=== PATIENT | female | born 1955 | race Hispanic/Latino ===

== ENCOUNTER → 2019-05-09 | Day surgery (SDC) | payer OTHER ==
[~2019-05-09] MED LIST: ALENDRONATE SOD70 MG PO; EPHEDRINE SULFATE INJ 50 MG/ML VIAL ONE; FENTANYL CITRATE/PF 100MCG/2 ML INJ ONE; HYOSCYAMINE 0.125 MG TAB ONE; LISINOPRIL-HCT1 EAC1 PO; MAGNESIUM PO; MIDAZOLAM HCL 2 MG/2 ML VIAL ONE; PROPOFOL IV EMULSION 10 MG/ML 50 ML VIAL ONE; SUPER B WITH V1 EACH PO
--- OUTSIDE RECORDS SUMMARY | 2019-05-09 06:28 | XMS REPORT ---
Author Author [facility] Address Unknown Phone Unavailable Care Team Providers Care Ward Attendant Name Role Phone Unavailable Unavailable Payers Payer Name Policy Type Policy Number Effective Date Expiration Date Problems This patient has no known problems. Allergies, Adverse Reactions, Alerts Allergy Name Allergy Type Status Severity Reaction(s) Onset Date Inactive Date Treating Clinician Comments oxycodone DA Active MO 2018-12-20 00:00:00 No Known Allergies DA Active U 2018-12-19 00:00:00 No Known Allergies DA Active U 2018-12-13 00:00:00 Medications This patient has no known medications. Results Test Description Test Time Test Comments Text Results Atomic Results Result Comments URINALYSIS COMPLETE 2018-12-27 18:27:00 UA COLOR (test code=COLU) STRAW YEL/STRAW UA APPEARANCE (test code=APPU) CLEAR CLEAR UA GLUCOSE DIPSTICK (test code=DGLUU) NEGATIVE NEGATIVE UA BILIRUBIN DIPSTICK (test code=BILU) NEGATIVE NEGATIVE UA KETONE DIPSTICK (test code=KETU) NEGATIVE NEGATIVE UA SPECIFIC GRAVITY (test code=SGU) 1.004 1.005-1.030 UA BLOOD DIPSTICK (test code=MEI) 2+ NEGATIVE UA PH DIPSTICK (test code=CHARLENE) 7.0 5.0-7.0 UA PROTEIN DIPSTICK (test code=PROU) NEGATIVE NEGATIVE UA UROBILINIOGEN DIPSTICK (test code=URO) 0.2 mg/dL 0.2-1.0 UA NITRITE DIPSTICK (test code=JAIME) NEGATIVE NEGATIVE UA LEUKOCYTE ESTERASE DIPSTICK (test code=LEUU) NEGATIVE NEGATIVE UA RBC (test code=RBCU) 0-3 RBC/HPF 0-3 UA WBC NO REFLEX (test code=WBCUCL) 0-3 WBC/HPF 0-3 UA BACTERIA (test code=BACU) NONE SEEN /HPF NONE SEEN UA SQUAMOUS CELLS (test code=SQU) 0-5 /HPF NONE SEEN BASIC METABOLIC [id number] 12:25:00* Test Item Value Reference Range Comments SODIUM (test code=NA) 137 mEq/L 134-147 POTASSIUM (test code=K) 4.0 mEq/L 3.4-5.0 CHLORIDE (test code=CL) 101 mEq/L 100-108 CARBON DIOXIDE (test code=CO2) 32 mEq/L 21-33 ANION GAP (test code=GAP) 8 0-20 GLUCOSE (test code=GLU) 115 mg/dL 70-110 BLOOD UREA NITROGEN (test code=BUN) 11 mg/dL 7-18 GLOMERULAR FILTRATION RATE (test code=GFR) 63.7 80-90 Units of measure=ml/min/1.73 m2 CREATININE (test code=CREAT) 0.9 mg/dL 0.6-1.3 CALCIUM (test code=CA) 9.2 mg/dL 8.0-10.5 BASIC METABOLIC [id number] 12:23:00* Test Item Value Reference Range Comments SODIUM (test code=NA) 137 mEq/L 134-147 POTASSIUM (test code=K) 4.0 mEq/L 3.4-5.0 CHLORIDE (test code=CL) 101 mEq/L 100-108 CARBON DIOXIDE (test code=CO2) 32 mEq/L 21-33 ANION GAP (test code=GAP) 8 0-20 GLUCOSE (test code=GLU) 115 mg/dL 70-110 BLOOD UREA NITROGEN (test code=BUN) 11 mg/dL 7-18 GLOMERULAR FILTRATION RATE (test code=GFR) 80-90 CREATININE (test code=CREAT) mg/dL 0.6-1.3 CALCIUM (test code=CA) 9.2 mg/dL 8.0-10.5 URINALYSIS [id number] 02:43:00* Test Item Value Reference Range Comments UA COLOR (test code=COLU) YELLOW YEL/STRAW UA APPEARANCE (test code=APPU) CLEAR CLEAR UA GLUCOSE DIPSTICK (test code=DGLUU) NEGATIVE NEGATIVE UA BILIRUBIN DIPSTICK (test code=BILU) NEGATIVE NEGATIVE UA KETONE DIPSTICK (test code=KETU) NEGATIVE NEGATIVE UA SPECIFIC GRAVITY (test code=SGU) 1.006 1.005-1.030 UA BLOOD DIPSTICK (test code=MEI) 1+ NEGATIVE UA PH DIPSTICK (test code=CHARLENE) 6.0 5.0-7.0 UA PROTEIN DIPSTICK (test code=PROU) NEGATIVE NEGATIVE UA UROBILINIOGEN DIPSTICK (test code=URO) 0.2 mg/dL 0.2-1.0 UA NITRITE DIPSTICK (test code=JAIME) NEGATIVE NEGATIVE UA LEUKOCYTE ESTERASE DIPSTICK (test code=LEUU) NEGATIVE NEGATIVE UA RBC (test code=RBCU) 0-3 RBC/HPF 0-3 UA WBC NO REFLEX (test code=WBCUCL) 0-3 WBC/HPF 0-3 UA BACTERIA (test code=BACU) TRACE /HPF NONE SEEN UA SQUAMOUS CELLS (test code=SQU) NONE SEEN /HPF NONE SEEN UA MUCUS (test code=MUCU) TRACE /LPF NONE SEEN COMMENTS: Clean Catch- CT ABD PELVIS [id number] 02:31:00 Name: ANDRIA CROSS [facility] : 1955 Age/S: 63 / F [address] [place] [address] Unit #: [id number] Loc: [place] [address] Phys: Tom Tan CAMERA MACHINIST Acct: [id number] Di s Date: Status: DEP ER PHONE #: [phone] Exam Date: 12/20/2018 013 FAX #: Reason: ABDOMINAL PAIN -RECENT ABDOMINAL SURGERY-BLADDE EXAMS: CPT CODE: [id number] CT ABD PELVIS W/CONT 68211 EXAM: CT, CT ABDOMEN PELV IS W CONTRAST: 12/20/2018, 0134 hours HISTORY: ABDOMINAL PAIN -RECE NT ABDOMINAL SURGERY-BLADDER SUSP COMPARISON: None available. TECHNIQUE: Helical imaging was performed from diaphragm through the symphysis with coronal and sagittal reconstructions. CT imaging was p erformed with exposure control parameters to reduce radiation dose. All CT scans at this location are performed using dose optimization techniques as appropriate to perform exam including the following: * Automated exposure control * Adjustment of the mA and /or kV according to patient size (this includes techniques or standardized protocols for targeted exams where dose is matched to indication/reason for exam; extremities or head) * Use of iterative reconstruction technique IV CONTRAST: 100 cc Isovue. GI CONTRAST: YES CT Radiation Dose: GLQ=853.65 mGy-cm FINDINGS: LOWER CHEST: The visualized lung bases are clear. LIVER: Unremarkable. GALLBLADDER: Unremarkable. I NTRAHEPATIC BILE DUCT AND EXTRAHEPATIC BILE DUCT: Unremarkable. PANCREAS: Unremarkable. SPLEEN: Unremarkable. ADRENALS: Unremarkable. KI DNEYS AND URETERS: There is mild bilateral hydrocele ureteral nephrosis. No obstructing stone identified bilaterally.. STOMACH: Unremarkabl e. BOWEL: The small bowel loops in the abdomen and pelvis appear unr emarkable. Moderately large fecal load in the colon. APPENDIX: Normal. PERITONEUM AND RETROPERITONEUM: No ascites or free air. There is no aortic aneurysm or dissection. Post anterior abdominal wall hernia repair changes. LYMPH NODES: Unremarkable. PAGE 1 Signed Report (CONTINUED) Name: SHANIQUA CROSS [facility] : 1955 Age /S: 63 / F [address] [place] [address] Unit #: [id number] Loc: [place] [address] Phys: Macarena Tan CAMERA MACHINIST Acct: [id number] Dis Date: Status: DEP ER PHONE #: [phone] Exam Date: 12/20/2018 0137 FAX #: [phone] Reason: ABDOMINAL PAIN -RECENT ABDOMINAL SURGERY-BLADDE EXAMS: CPT CODE: [id number] CT ABD PELVIS W/CONT 91594 <Continued> PELVIS: No pelvic mass or adenopathy. Uterus and ovaries are not visualized. A soft tissue density with small calcification in the left upper pelvis indeterminate. Left ovary in differential. BLADDER: Moderately distended with small intraluminal air, probably due to recent instrumentation.. OSSEOUS STRUCTURES: Mild right scoliosis of the thoracolumbar spine. Mild degenerative changes in thoracolumbar spine. SOFT TISSUES: Unremarkable. IMPRESSION: 1. There is mild bilateral hydroureteronephrosis. No obstructing stones identified in the ureters. Please correlate with labs. 2. Moderately distended bladder with small intraluminal air which may be due to recent instrumentation. 3. Moderately large fecal load in the colon. 4. A soft tissue density with small calcification in the left upper pelvis indeterminate. Left ovary or adenopathy in differential. SL: JSYED-H at 0231 Reported and signed by: Ken Kimbrough M.D. CC: Jimmy Mehta MD; Macarena Tan Technologist:Jason Chappell, RT(R) CTDI: DLP: Trnscb Date/Time: 12/20/2018 (023) [email or web address] Orig Print D/T: S: 12/20/2018 (0234) PAGE 2 Signed Report - CT ABD PELVIS [id number] 02:31:00 Name: ANDRIA CROSS [facility] : 1955 Age/S: 63 / F [address] [place], [place] [address]vd Unit #: [id number] Loc: [place] [address] Phys: Macarena Tan Acct: [id number] Dis Date: Status: REG ER PHONE #: [phone] Exam Date: 12/20/2018136 FAX #: [phone] Reason: ABDOMINAL PAIN -RECENT ABDOMINAL SURGERY-BLADDE EXAMS: CPT CODE: [id number] CT ABD PELVIS W/CONT 14274 EXAM: CT, CT ABDOMEN PELVIS W CONTRAST: 12/20/2018, 0134 hours HISTORY: ABDOMINAL PAIN -RECENT ABDOMINAL SURGERY-BLADDER SUSP COMPARISON: None available. TECHNIQUE: Helical imaging was performed from diaphragm through the symphysis with coronal and sagittal reconstructions. CT imaging was performed with exposure control parameters to reduce radiation dose. All CT scans at this location are performed using dose optimization techniques as appropriate to perform exam including the following: * Automated exposure control * Adjustment of the mA and /or kV according to patient size (this includes techniques or standardized protocols for targeted exams where dose is matched to indication/reason for exam; extremities or head) * Use of iterative reconstruction technique IV CONTRAST: 100 cc Isovue. GI CONTRAST: YES CT Radiation Dose: LCC=448.65 mGy-cm FINDINGS: LOWER CHEST: The visualized lung bases are clear. LIVER: Unremarkable. GALLBLADDER: Unremarkable. INTRAHEPATIC BILE DUCT AND EXTRAHEPATIC BILE DUCT: Unremarkable. PANCREAS: Unremarkable. SPLEEN: Unremarkable. ADRENALS: Unremarkable. KI DNEYS AND URETERS: There is mild bilateral hydrocele ureteral nephrosis. No obstructing stone identified bilaterally.. STOMACH: Unremarkabl e. BOWEL: The small bowel loops in the abdomen and pelvis appear unr emarkable. Moderately large fecal load in the colon. APPENDIX: Normal. PERITONEUM AND RETROPERITONEUM: No ascites or free air. There is no aortic aneurysm or dissection. Post anterior abdominal wall hernia repair changes. LYMPH NODES: Unremarkable. PAGE 1 Signed Report (CONTINUED) Name: SHANIQUA CROSS [facility] : 1955 Age /S: 63 / F [address] [place] [address] Blvd Unit #: [id number] Loc: [place] [address] Phys: Macarena Tan CAMERA MACHINIST Acct: [id number] Dis Date: Status: REG ER PHONE #: [phone] Exam Date: 12/20/2018 0137 FAX #: [phone] Reason: ABDOMINAL PAIN -RECENT ABDOMINAL SURGERY-BLADDE EXAMS: CPT CODE: [id number] CT ABD PELVIS W/CONT 17774 <Continued> PELVIS: No pelvic mass or adenopathy. Uterus and ovaries are not visualized. A soft tissue density with small calcification in the left upper pelvis indeterminate. Left ovary in differential. BLADDER: Moderately distended with small intraluminal air, probably due to recent instrumentation.. OSSEOUS STRUCTURES: Mild right scoliosis of the thoracolumbar spine. Mild degenerative changes in thoracolumbar spine. SOFT TISSUES: Unremarkable. IMPRESSION: 1. There is mild bilateral hydroureteronephrosis. No obstructing stones identified in the ureters. Please correlate with labs. 2. Moderately distended bladder with small intraluminal air which may be due to recent instrumentation. 3. Moderately large fecal load in the colon. 4. A soft tissue density with small calcification in the left upper pelvis indeterminate. Left ovary or adenopathy in differential. SL: MORIAH at 0231 Reported and signed by: Ken Kimbrough M.D. CC: Jimmy Mehta MD; Macarena DAVID Sheffield Technologist:RT Bennie(R) CTDI: DLP: Trnscb Date/Time: 12/20/2018 (023) [email or web address] Orig Print D/T: S: 12/20/2018 (0231) PAGE 2 Signed Report LACTIC ACID 2018-12-20 00:56:00* Test Item Value Reference Range Comments LACTIC ACID (test code=LACT) 1.4 mmol/L 0.4-1.9 COMPREHENSIVE METABOLIC [id number] 00:54:00* Test Item Value Reference Range Comments SODIUM (test code=NA) 135 mEq/L 134-147 POTASSIUM (test code=K) 4.3 mEq/L 3.4-5.0 CHLORIDE (test code=CL) 101 mEq/L 100-108 CARBON DIOXIDE (test code=CO2) 30 mEq/L 21-33 ANION GAP (test code=GAP) 8 0-20 GLUCOSE (test code=GLU) 124 mg/dL 70-110 BLOOD UREA NITROGEN (test code=BUN) 13 mg/dL 7-18 GLOMERULAR FILTRATION RATE (test code=GFR) 56.4 80-90 Units of measure=ml/min/1.73 m2 CREATININE (test code=CREAT) 1.0 mg/dL 0.6-1.3 TOTAL PROTEIN (test code=PROT) 7.4 g/dL 6.4-8.2 ALBUMIN (test code=ALB) 3.60 g/dL 3.4-5.0 CALCIUM (test code=CA) 9.1 mg/dL 8.0-10.5 BILIRUBIN TOTAL (test code=BILT) 0.6 MG/DL <1.5 SGOT/AST (test code=AST) 35 IUnit/L 15-37 SGPT/ALT (test code=ALT) 24 IUnit/L 15-65 ALKALINE PHOSPHATASE TOTAL (test code=ALKP) 68 IUnit/L 20-125 HEPATIC FUNCTION [id number] 00:54:00* Test Item Value Reference Range Comments BILIRUBIN DIRECT (test code=BILD) 0.20 MG/DL 0.0-0.30 BILIRUBIN INDIRECT (test code=BILIND) 0.40 MG/DL [id number] 00:54:00* Test Item Value Reference Range Comments LIPASE (test code=LIP) 108 IUnit/L 73-393 HCG SERUM [id number] 00:54:00* Test Item Value Reference Range Comments HCG SERUM QUAL (test code=HCGQL) SERUM NEGATIVE NEGATIVE [id number] 00:54:00* Test Item Value Reference Range Comments TROPONIN-I (test code=TROPI) < 0.015 ng/mL 0.000-0.045 Negative: <=0.045 Positive: >=0.046 Correlation with serial results, other cardiac markers andclinical findings is necessary to determine the clinicalsignificance of this result. Results using different methodologies should not be comparedto one another as quantitative results may vary by method. PROTHROMBIN [id number] 00:47:00* Test Item Value Reference Range Comments PROTHROMBIN TIME PATIENT (test code=PTP) 10.9 SECONDS 9.3-12.9 INTERNATIONAL NORMAL RATIO (test code=INR) 1.0 0.8-1.2 TARGET INR BY INDICATION Indication INR1. Prophylaxis of venous thrombosis 2.0 - 3.0 (orthopedic surgery), Prophylaxis of venous thrombosis (other than high-risk surgery), Treatment of Deep Vein Thrombosis/Pulmonary Embolism, Prevention of systemic embolism - Tissue heart valves, Acute Myocardial Infarction (to prevent systemic embolism), Valvular heart disease, Atrial Fibrillation, Bileaflet mechanical valve in aortic position.2. Mechanical prosthetic valves (high risk), 2.5 - 3.5 Presence of Lupus Anticoagulant or Antiphospholipid Antibodies, Prevention of systemic embolism - Acute Myocardial Infarction (to prevent recurrent infarct). THROMBOPLASTIN TIME [id number] 00:47:00* Test Item Value Reference Range Comments THROMBOPLASTIN TIME PARTIAL (test code=PTT) 28.2 Seconds 25.0-39.5 Therapeutic Range: 50.4 - 88.3 Seconds Effective 07/06/2018 COMPREHENSIVE METABOLIC [id number] 00:47:00* Test Item Value Reference Range Comments SODIUM (test code=NA) mEq/L 134-147 POTASSIUM (test code=K) mEq/L 3.4-5.0 CHLORIDE (test code=CL) mEq/L 100-108 CARBON DIOXIDE (test code=CO2) mEq/L 21-33 ANION GAP (test code=GAP) 0-20 GLUCOSE (test code=GLU) mg/dL 70-110 BLOOD UREA NITROGEN (test code=BUN) mg/dL 7-18 GLOMERULAR FILTRATION RATE (test code=GFR) 80-90 CREATININE (test code=CREAT) mg/dL 0.6-1.3 TOTAL PROTEIN (test code=PROT) g/dL 6.4-8.2 ALBUMIN (test code=ALB) g/dL 3.4-5.0 CALCIUM (test code=CA) mg/dL 8.0-10.5 BILIRUBIN TOTAL (test code=BILT) MG/DL <1.5 SGOT/AST (test code=AST) IUnit/L 15-37 SGPT/ALT (test code=ALT) IUnit/L 15-65 ALKALINE PHOSPHATASE TOTAL (test code=ALKP) IUnit/L 20-125 HEPATIC FUNCTION [id number] 00:47:00* Test Item Value Reference Range Comments BILIRUBIN DIRECT (test code=BILD) MG/DL 0.0-0.30 [id number] 00:47:00* Test Item Value Reference Range Comments LIPASE (test code=LIP) IUnit/L 73-393 HCG SERUM [id number] 00:47:00* Test Item Value Reference Range Comments HCG SERUM QUAL (test code=HCGQL) SERUM NEGATIVE NEGATIVE [id number] 00:47:00* Test Item Value Reference Range Comments TROPONIN-I (test code=TROPI) ng/mL 0.000-0.045 CBC W/AUTO [id number] 00:33:00* Test Item Value Reference Range Comments WHITE BLOOD CELL (test code=WBC) 11.82 x10 3/uL 4.5-11.0 RED BLOOD CELL (test code=RBC) 3.59 x10 6/uL 3.54-5.02 HEMOGLOBIN (test code=HGB) 11.7 g/dL 11.0-15.0 HEMATOCRIT (test code=HCT) 34.9 % 33.0-45.0 MEAN CELL VOLUME (test code=MCV) 97.2 fL 81.0-99.0 MEAN CELL HGB (test code=MCH) 32.6 pg 27.0-33.0 MEAN CELL HGB CONCETRATION (test code=MCHC) 33.5 g/dL 33.0-37.0 RED CELL DISTRIBUTION WIDTH CV (test code=RDW) 11.2 % 11.5-14.5 RED CELL DISTRIBUTION WIDTH SD (test code=RDW-SD) 40.0 fL 37.0-54.0 PLATELET COUNT (test code=PLT) 231 x10 3/uL 150-400 MEAN PLATELET VOLUME (test code=MPV) 10.0 fL 7.0-9.0 NEUTROPHIL % (test code=NT%) 72.6 % 56.0-77.0 IMMATURE GRANULOCYTE % (test code=IG%) 1.0 % 0.0-2.0 LYMPHOCYTE % (test code=LY%) 19.0 % 14.0-32.0 MONOCYTE % (test code=MO%) 6.0 % 4.8-9.0 EOSINOPHIL % (test code=EO%) 1.1 % 0.3-3.7 BASOPHIL % (test code=BA%) 0.3 % 0.0-2.0 NUCLEATED RBC % (test code=NRBC%) 0.0 % 0-0 NEUTROPHIL # (test code=NT#) 8.57 x10 3/uL 2.0-7.6 IMMATURE GRANULOCYTE # (test code=IG#) 0.12 x10 3/uL 0.00-0.03 LYMPHOCYTE # (test code=LY#) 2.25 x10 3/uL 1.0-3.8 MONOCYTE # (test code=MO#) 0.71 x10 3/uL 0.1-0.8 EOSINOPHIL # (test code=EO#) 0.13 x10 3/uL 0.0-0.2 BASOPHIL # (test code=BA#) 0.04 x10 3/uL 0.0-0.2 NUCLEATED RBC # (test code=NRBC#) 0.00 x10 3/uL 0.0-0.1 MANUAL DIFF REQUIRED (test code=MDIFF) NO SURGICAL [id number] 08:37:00 RUN DATE: 12/18/18 [facility] *LIVE* PAGE 1 RUN TIME: 836 Specimen Inqui ry RUN USER: INTERFACE PATIENT: ANDRIA CROSS ACCT #: [id number] LOC: [facility] U #: [id number] AGE/SX: 63/F ROOM: [facility] RE12/15/18REG DR: Lynette Henderson : [birth year] BED: 1 DIS: 12/17/18 STATUS: DIS Ellen TLOC: SPEC #: [id number] RECD: 12/16/18 STATUS: [place] REQ #: [id number] ORLIN: 12/16/[address]: Lynette Henderson MD ENTERED: 12/18/18 SP TYPE: SURG SPEC OTHR DR: Sebastian Cazares JR, MD, Dhruvil R MDORDERED: GM LEVEL 4 CODES: [id number] - UTERUS, NOS COPIES TO: Yoli Sanders MD [address] [place], [place] [id number] Sebastian Cazares JR, MD [address] [address] Lanie Lacy MD [address] [place], [place] [address] [place] [address] PROCEDURES: LEVEL 4 (Incomplete) TISSUES: 1. UTERUS, NOS - Uterus, cervix, excision FINAL DIAGNOSIS Cervix uteri: Chronic cerv icitis, squamous metaplasia, nabothian cysts. Endometrium: Basal state. Corpus uteri: Leiomyomata, adenomyosis, fibrous serosal adhesions. GROSS AND MICROSCOPIC GROSS EXAMINATION: Received the specimen as designated above and it consists of a uterus that weighs 59 g and measures 7.6 x 4.5 x 3.3 cm. The endometrium measures 0.1 cm, myometrium 1.6 cm with one rivera-wh ite nodule measuring 1.4 cm. Sections are submitted as (A)-(F). MICROSCOPIC EXAMINATION: The ectocervical mucosa has normal maturation. The endocervical mucosa has nabothian cysts, areas of squamous metaplasia and associated chronic inflammation. CONTINUED ON NEXT PAGE RUN D ATE: 12/18/18 [facility] *LIVE* PA GE 2 RUN TIME: 0837 Specimen Inquiry RUN USER: INTERFACE SPEC #: [id number] PATIENT: ANDRIA CROSS #[id number] (Continued) GROSS AND MICROSCOPIC (Shameka nued) The endometrial glands show basal state. Benign endometrial glands and stroma are present in the myometrium. The myometrial nodule(s) are composed of bundles of smooth muscle cells with no significant nuclear atypia or mitotic activity. The serosa shows fibrous adhesions. POST-OP DIAGNOSIS Pelvic organ prolapse, incarcerated ventral hernia PRE-OP DIAGNOSIS Pelvic organ prolapse, incarcerated ventral hernia S igned SIGNATURE ON FILE Ryan Kulkarni MD 12/18/18 0837 E ND OF REPORT BASIC METABOLIC [id number] 07:44:00* Test Item Value Reference Range Comments SODIUM (test code=NA) 135 mEq/L 134-147 POTASSIUM (test code=K) 4.3 mEq/L 3.4-5.0 CHLORIDE (test code=CL) 104 mEq/L 100-108 CARBON DIOXIDE (test code=CO2) 23 mEq/L 21-33 ANION GAP (test code=GAP) 12 0-20 GLUCOSE (test code=GLU) 118 mg/dL 70-110 BLOOD UREA NITROGEN (test code=BUN) 15 mg/dL 7-18 GLOMERULAR FILTRATION RATE (test code=GFR) 56.4 80-90 Units of measure=ml/min/1.73 m2 CREATININE (test code=CREAT) 1.0 mg/dL 0.6-1.3 CALCIUM (test code=CA) 7.9 mg/dL 8.0-10.5 CBC W/AUTO [id number] 07:18:00* Test Item Value Reference Range Comments WHITE BLOOD CELL (test code=WBC) 13.79 x10 3/uL 4.5-11.0 RED BLOOD CELL (test code=RBC) 3.19 x10 6/uL 3.54-5.02 HEMOGLOBIN (test code=HGB) 10.7 g/dL 11.0-15.0 HEMATOCRIT (test code=HCT) 31.3 % 33.0-45.0 MEAN CELL VOLUME (test code=MCV) 98.1 fL 81.0-99.0 MEAN CELL HGB (test code=MCH) 33.5 pg 27.0-33.0 MEAN CELL HGB CONCETRATION (test code=MCHC) 34.2 g/dL 33.0-37.0 RED CELL DISTRIBUTION WIDTH CV (test code=RDW) 11.1 % 11.5-14.5 RED CELL DISTRIBUTION WIDTH SD (test code=RDW-SD) 39.2 fL 37.0-54.0 PLATELET COUNT (test code=PLT) 181 x10 3/uL 150-400 MEAN PLATELET VOLUME (test code=MPV) 10.1 fL 7.0-9.0 NEUTROPHIL % (test code=NT%) 87.6 % 56.0-77.0 IMMATURE GRANULOCYTE % (test code=IG%) 0.4 % 0.0-2.0 LYMPHOCYTE % (test code=LY%) 7.7 % 14.0-32.0 MONOCYTE % (test code=MO%) 4.2 % 4.8-9.0 EOSINOPHIL % (test code=EO%) 0.0 % 0.3-3.7 BASOPHIL % (test code=BA%) 0.1 % 0.0-2.0 NUCLEATED RBC % (test code=NRBC%) 0.0 % 0-0 NEUTROPHIL # (test code=NT#) 12.08 x10 3/uL 2.0-7.6 IMMATURE GRANULOCYTE # (test code=IG#) 0.06 x10 3/uL 0.00-0.03 LYMPHOCYTE # (test code=LY#) 1.06 x10 3/uL 1.0-3.8 MONOCYTE # (test code=MO#) 0.58 x10 3/uL 0.1-0.8 EOSINOPHIL # (test code=EO#) 0.00 x10 3/uL 0.0-0.2 BASOPHIL # (test code=BA#) 0.01 x10 3/uL 0.0-0.2 NUCLEATED RBC # (test code=NRBC#) 0.00 x10 3/uL 0.0-0.1 MANUAL DIFF REQUIRED (test code=MDIFF) NO COMPREHENSIVE METABOLIC [id number] 12:23:00* Test Item Value Reference Range Comments SODIUM (test code=NA) 140 mEq/L 134-147 POTASSIUM (test code=K) 3.8 mEq/L 3.4-5.0 CHLORIDE (test code=CL) 104 mEq/L 100-108 CARBON DIOXIDE (test code=CO2) 30 mEq/L 21-33 ANION GAP (test code=GAP) 10 0-20 GLUCOSE (test code=GLU) 114 mg/dL 70-110 BLOOD UREA NITROGEN (test code=BUN) 16 mg/dL 7-18 GLOMERULAR FILTRATION RATE (test code=GFR) 50.5 80-90 Units of measure=ml/min/1.73 m2 CREATININE (test code=CREAT) 1.1 mg/dL 0.6-1.3 TOTAL PROTEIN (test code=PROT) 8.3 g/dL 6.4-8.2 ALBUMIN (test code=ALB) 4.10 g/dL 3.4-5.0 CALCIUM (test code=CA) 9.7 mg/dL 8.0-10.5 BILIRUBIN TOTAL (test code=BILT) 0.4 MG/DL <1.5 SGOT/AST (test code=AST) 18 IUnit/L 15-37 SGPT/ALT (test code=ALT) 14 IUnit/L 15-65 ALKALINE PHOSPHATASE TOTAL (test code=ALKP) 56 IUnit/L 20-125 COMPREHENSIVE METABOLIC [id number] 12:09:00* Test Item Value Reference Range Comments SODIUM (test code=NA) 140 mEq/L 134-147 POTASSIUM (test code=K) 3.8 mEq/L 3.4-5.0 CHLORIDE (test code=CL) 104 mEq/L 100-108 CARBON DIOXIDE (test code=CO2) 30 mEq/L 21-33 ANION GAP (test code=GAP) 10 0-20 GLUCOSE (test code=GLU) 114 mg/dL 70-110 BLOOD UREA NITROGEN (test code=BUN) 16 mg/dL 7-18 GLOMERULAR FILTRATION RATE (test code=GFR) 80-90 CREATININE (test code=CREAT) mg/dL 0.6-1.3 TOTAL PROTEIN (test code=PROT) g/dL 6.4-8.2 ALBUMIN (test code=ALB) g/dL 3.4-5.0 CALCIUM (test code=CA) 9.7 mg/dL 8.0-10.5 BILIRUBIN TOTAL (test code=BILT) MG/DL <1.5 SGOT/AST (test code=AST) IUnit/L 15-37 SGPT/ALT (test code=ALT) IUnit/L 15-65 ALKALINE PHOSPHATASE TOTAL (test code=ALKP) IUnit/L 20-125 CBC W/AUTO [id number] 11:49:00* Test Item Value Reference Range Comments WHITE BLOOD CELL (test code=WBC) 6.38 x10 3/uL 4.5-11.0 RED BLOOD CELL (test code=RBC) 4.17 x10 6/uL 3.54-5.02 HEMOGLOBIN (test code=HGB) 13.8 g/dL 11.0-15.0 HEMATOCRIT (test code=HCT) 40.4 % 33.0-45.0 MEAN CELL VOLUME (test code=MCV) 96.9 fL 81.0-99.0 MEAN CELL HGB (test code=MCH) 33.1 pg 27.0-33.0 MEAN CELL HGB CONCETRATION (test code=MCHC) 34.2 g/dL 33.0-37.0 RED CELL DISTRIBUTION WIDTH CV (test code=RDW) 11.4 % 11.5-14.5 RED CELL DISTRIBUTION WIDTH SD (test code=RDW-SD) 40.3 fL 37.0-54.0 PLATELET COUNT (test code=PLT) 228 x10 3/uL 150-400 MEAN PLATELET VOLUME (test code=MPV) 10.0 fL 7.0-9.0 NEUTROPHIL % (test code=NT%) 55.7 % 56.0-77.0 IMMATURE GRANULOCYTE % (test code=IG%) 0.6 % 0.0-2.0 LYMPHOCYTE % (test code=LY%) 36.2 % 14.0-32.0 MONOCYTE % (test code=MO%) 6.4 % 4.8-9.0 EOSINOPHIL % (test code=EO%) 0.5 % 0.3-3.7 BASOPHIL % (test code=BA%) 0.6 % 0.0-2.0 NUCLEATED RBC % (test code=NRBC%) 0.0 % 0-0 NEUTROPHIL # (test code=NT#) 3.55 x10 3/uL 2.0-7.6 IMMATURE GRANULOCYTE # (test code=IG#) 0.04 x10 3/uL 0.00-0.03 LYMPHOCYTE # (test code=LY#) 2.31 x10 3/uL 1.0-3.8 MONOCYTE # (test code=MO#) 0.41 x10 3/uL 0.1-0.8 EOSINOPHIL # (test code=EO#) 0.03 x10 3/uL 0.0-0.2 BASOPHIL # (test code=BA#) 0.04 x10 3/uL 0.0-0.2 NUCLEATED RBC # (test code=NRBC#) 0.00 x10 3/uL 0.0-0.1 MANUAL DIFF REQUIRED (test code=MDIFF) NO PROTHROMBIN [id number] 11:41:00* Test Item Value Reference Range Comments PROTHROMBIN TIME PATIENT (test code=PTP) 11.2 SECONDS 9.3-12.9 INTERNATIONAL NORMAL RATIO (test code=INR) 1.0 0.8-1.2 TARGET INR BY INDICATION Indication INR1. Prophylaxis of venous thrombosis 2.0 - 3.0 (orthopedic surgery), Prophylaxis of venous thrombosis (other than high-risk surgery), Treatment of Deep Vein Thrombosis/Pulmonary Embolism, Prevention of systemic embolism - Tissue heart valves, Acute Myocardial Infarction (to prevent systemic embolism), Valvular heart disease, Atrial Fibrillation, Bileaflet mechanical valve in aortic position.2. Mechanical prosthetic valves (high risk), 2.5 - 3.5 Presence of Lupus Anticoagulant or Antiphospholipid Antibodies, Prevention of systemic embolism - Acute Myocardial Infarction (to prevent recurrent infarct). THROMBOPLASTIN TIME [id number] 11:41:00* Test Item Value Reference Range Comments THROMBOPLASTIN TIME PARTIAL (test code=PTT) 32.4 Seconds 25.0-39.5 Therapeutic Range: 50.4 - 88.3 Seconds Effective 07/06/2018 - XR CHEST 2 [id number] 11:19:00 FAX: Yoli Fraser [phone] [place]: St: PRE FAX: Lanie Julian MD [phone] Name: ANDRIA CROSS [facility] : 1955 Age/S: 63/F [address] [place] [address] Unit #: [id number] Loc: [place] [address] Phys: Lanie Lacy MD Acct: [id number] Dis Date: Status: PRE SDC PHONE #: [phone] Exam Date: 12/13/2018 1115 FAX #: [phone] Reason: PRE-OP HYSTERECTOMY, VENTRAL HERNIA EXAMS: CPT CODE: [id number] XR CHEST 2 V 39694 CLINICAL HISTORY: PRE-OP HYSTERECTOMY, VENTRAL HERNIA COMPARISON: NONE PA and lateral films of the chest demonstrate that heart size is normal. Lung edwards are clear. No evidence of pneumonia or congestive failure is seen. Regional skeletal structures demonstrate no acute abnormality. IMPRESSION: No evidence of pneumonia or congestive failure is seen. at 1119 Reported and signed by: Ja Lacy M.D. CC: Yoli Henderson MD; Lanie Lacy MD Technologist: RT Edilberto(R) Trnscrd Date/Time/By: 12/13/2018 (1112) : By: Cesar Orig Print D/T: S: 12/13/2018 (4989) PAGE 1 Signed Report - CT ABD PELVIS W/O [id number] 09:55:00 Name: ANDRIA CROSS : 1955 Age/S: 63 / F [address] [place] [address] Unit #: [id number] Loc: [place] [address] Phys: Lanie Lacy MD Acct: [id number] Dis Date: Status: REG CLI PHONE #: [phone] Exam Date: 11/12/2018906 FAX #: [phone] Reason: K43.9 VENTRAL HERNIA W/O OBSTRUCTION OR GANGREN EXAMS: CPT CODE: [id number] CT ABD PELVIS W/O CONT 93101 PROCEDURE: CT ABDOMEN AND PELVIS WITHOUT CONTRAST INDICATION: Lower pelvic pain COMPARISON: None. TECHNIQUE: Helical imaging was performed diaphragm through the symphysis with multiplanar reconstructions. CT imaging performed at this location utilizes radiation dose optimization techniques which include one or more of the following: -Automated exposure control -Adjustment of the mA and/or kV according to patient size -Use of iterative reconstruction technique CT Radiation Dose DLP 386.2 mGy-cm IV CONTRAST: None. GI CONTRAST: None FINDINGS: This examination is limited for the evaluation of abdominal viscera and vascular structures due to lack of intravenous contrast. LOWER CHEST: The lung bases are clear. LIVER: Normal. GALLBLADDER: Surgically absent SPLEEN: Normal. PANCREAS: Normal. ADRENALS: Normal. KIDNEYS: Normal. BOWEL: A few diverticula in the sigmoid colon are present. No adjacent inflammation is noted. No bowel dilatation is present. There is mild stool throughout the colon. The appendix is normal caliber. PERITONEUM: No free intraperitoneal fluid or air. RETROPERITONEUM: No adenopathy. The aorta is normal. PAGE 1 Signed Report (CONTINUED) Name: ANDRIA CROSS : 1955 Age/S: 63 / F [address] [place] [address] Unit #: [id number] Loc: [place] [address] Phys: Lanie Lacy MD Acct: [id number] Dis Date: Status: REG CLI PHONE #: [phone] Exam Date: 11/12/2018906 FAX #: [phone] Reason: K43.9 VENTRAL HERNIA W/O OBSTRUCTION OR GANGREN EXAMS: CPT CODE: [id number] CT ABD PELVIS W/O CONT 89508 <Continued> PELVIS: No pelvic mass. The urinary bladder is normal. MUSCULOSKELETAL: The skeleton is intact. There are mild degenerative changes in the lower lumbar spine. IMPRESSION: 1. No acute process identified within abdomen or pelvis. 2. No urinary tract obstruction or stones. SL: [id number] at 0955 Reported and signed by: Emil Leung M.D. CC: Yoli Henderson MD; Lanie Lacy MD Technologist:Jinny Miller, RT(R)(CT) CTDI: DLP: Trnscb Date/Time: 11/12/2018 (954) [id number] Orig Print D/T: S: 11/12/2018 (0756) PAGE 2 Signed Report
--- NOTE | 2019-05-09 07:15 | NUR ---
SPIRITUAL CARE - Pre-Surgery Assessment: Pt in bed. Pt reported supportive attention from family and friends. Intervention: I provided pastoral presence, hospitality, and sympathetic listening. I acquainted pt with availability of atmospheric chemist while hospitalized. Outcome: Pt expressed appreciation for visit. No need for follow up indicated at this time. DM[facility] Spiritual Care Department O: [phone] Pager: [phone] ([phone] number calling from)
[2019-05-09 10:15] VITALS: BP 104/54
--- NOTE | 2019-05-09 13:56 | Operative Report ---
DATE OF PROCEDURE: 05/09/2019 SURGEON: Patricio Langford MD PROCEDURE: Colonoscopy with polypectomy. INDICATIONS FOR COLONOSCOPY: Surveillance colonoscopy, personal history of colon polyps. MEDICATIONS: The patient was done under MAC, please see anesthesiologist's note. PROCEDURE IN DETAIL: With the patient in the left lateral decubitus position, a flexible fiberoptic Olympus colonoscope was inserted into the rectum with ease and advanced all the way to the cecum. A minute polyp was noted in the cecum that was removed per cold snare polypectomy. The ascending, transverse, descending, sigmoid, and rectum appeared to be within normal limits. The scope was then retroflexed into the distal rectum and small internal hemorrhoids were noted, none of which was actively bleeding. The scope was then straightened out, it was subsequently withdrawn, and the patient tolerated the procedure well. IMPRESSION: 1. Cecal polyp, cold snared. 2. Internal hemorrhoids, none actively bleeding. PLAN: Follow up histology. Initiate high-fiber, low-fat diet. Initiate high-fiber supplement. The patient might benefit from a followup colonoscopy in 3 to [address]. [address] Lang[address] MD [facility] [place] /[id number] cc: Petra Ortiz MD
== END | disposition home or self-care (01) ==
LOC: OR 06:20
PROVIDERS: ATTEND Internal Medicine Gastroenterology
DX: Z09 Encounter for follow-up examination after completed treatment for conditions other than malignant neoplasm (principal); D12.0 Benign neoplasm of cecum; K64.8 Other hemorrhoids; I10 Essential (primary) hypertension; M81.0 Age-related osteoporosis without current pathological fracture; M19.90 Unspecified osteoarthritis, unspecified site; K44.9 Diaphragmatic hernia without obstruction or gangrene; E78.5 Hyperlipidemia, unspecified; K21.9 Gastro-esophageal reflux disease without esophagitis; Z88.6 Allergy status to analgesic agent; Z88.8 Allergy status to other drugs, medicaments and biological substances; Z01.810 Encounter for preprocedural cardiovascular examination; Z68.34 Body mass index [BMI] 34.0-34.9, adult
CPT/HCPCS: 45385; 93005; J2250; J2704; J3010; 45378

== ENCOUNTER → 2024-12-21 | Day surgery (SDC) | payer MEDICARE, OTHER ==
[2024-12-14 10:50] LABS: NEUTROPHILS % 64.3 % (38.7-80.0); RED CELL DISTRIBUTION WIDTH 11.6 % (11.7-14.4)
[2024-12-14 10:52] LABS: EOSINOPHILS % 0.3 % (0.0-6.0); LYMPHOCYTES % 29.1 % (18.0-39.1); MONOCYTES % 5.6 % (4.4-11.3)
[2024-12-14 10:53] LABS: BASOPHILS % 0.3 % (0.0-1.0)
[~2024-12-21] MED LIST changes: +ATORVASTATIN CA20 MG PO; +CALCIUM CARBON500 MG PO; -EPHEDRINE SULFATE INJ 50 MG/ML VIAL ONE; -HYOSCYAMINE 0.125 MG TAB ONE; +LIDOCAINE HCL 2% LOCAL INJ 5 ML SDV VIAL INJ ONE; +LISINOPRIL10 MG PO; -MIDAZOLAM HCL 2 MG/2 ML VIAL ONE; +OMEGA 3 1,0001 EACH PO; -PROPOFOL IV EMULSION 10 MG/ML 50 ML VIAL ONE; +PROPOFOL IV EMULSION 50 ML IV ONE; +VENTOLIN HFA18 GM INH
[2024-12-21] MEDS: LACTATED RINGER'S 1,000 ML ONE (08:39)
[2024-12-21 10:27] VITALS: TEMP 97
[2024-12-21 10:50] VITALS: BP 108/71; PULSE 60; RESP 18; O2SAT 99
== END | disposition home or self-care (01) ==
LOC: OR 07:29
PROVIDERS: ATTEND Internal Medicine Gastroenterology
DX: Z12.11 Encounter for screening for malignant neoplasm of colon (principal); K64.4 Residual hemorrhoidal skin tags; K59.00 Constipation, unspecified; Z86.0100 Personal history of colon polyps, unspecified; Z01.810 Encounter for preprocedural cardiovascular examination; Z01.812 Encounter for preprocedural laboratory examination; I10 Essential (primary) hypertension; E78.5 Hyperlipidemia, unspecified; M81.0 Age-related osteoporosis without current pathological fracture; J45.909 Unspecified asthma, uncomplicated; K21.9 Gastro-esophageal reflux disease without esophagitis; Z88.5 Allergy status to narcotic agent; Z79.83 Long term (current) use of bisphosphonates; Z79.899 Other long term (current) drug therapy
CPT/HCPCS: 36415; 85025; 93005; G0105; J2003; J2704; J3010; J7121; 45378